=== PATIENT | female | born 1990 | race African-American/Black ===

== ENCOUNTER 2017-01-21 22:25 | Emergency (ER) | payer OTHER ==
[2017-01-21 22:27] VITALS: BP 144/83; PULSE 97; RESP 16; TEMP 98.6; O2SAT 100
[2017-01-22] MEDS ORDERED: MOME17I EACH NARE (00:07)
[2017-01-22] MEDS ORDERED: ALLE12TA2 PO (00:07)
--- NOTE | 2017-01-22 00:11 | PD ---
HPI Chief Complaint: Cold / Flu Symptoms Time Seen by Provider: 00:08 Travel History International Travel<30 days: No Contact w/Intl Traveler<30days: No Traveled to known affect area: No History of Present Illness HPI 26-year-old black female presents emergency Department with complaints of ear pain. She states that her child had been sick earlier this past week. She had developed a cold from her child. She has had a runny nose, cough and congestion. This is been present now for the past 3 days. Today she states that she's been having increasing worsening pain in her right ear. She denies any fever or chills. No shortness of breath or wheezing. No nausea vomiting. No abdominal pain or diarrhea. Symptoms are moderate. No palliative or exacerbating activities History Past Medical History Medical History: Denies Significant Hx ?: Not Past Surgical History Section: Yes Social History Alcohol Use: No Tobacco Use: Yes Allergies-Medications (Allergen,Severity, Reaction): Coded Allergies: Morphine (Verified Allergy, Severe, Hives, 01/22/17) Reported Meds & Prescriptions Reported Meds & Active Scripts Active Esther-D 12 Hour Allergy (Fexofenadine-Pseudoephedrine ER 12 HR) 60-120 Mg Jamie 1 Tab PO BID Nasonex Nasal [place] (Mometasone Furoate) 50 Mcg/Act Naspr 2 [place] EACH NARE DAILY ROS Except as stated in HPI: all other systems reviewed are Neg Physical Exam Narrative GENERAL: Well-developed, well-nourished in no acute distress. Nontoxic appearing. HEAD: Normocephalic, atraumatic. EYES: Pupils equal round and reactive. Extraocular motions intact. No scleral icterus. No injection or drainage. ENT: TMs dull and retracted. The right worse than the left. No erythema. No perforation. The external auditory canals clear. Nose: clear . Posterior pharynx is pink and moist. No tonsillar edema or exudate. Uvula midline. Airway patent. NECK: Trachea midline.Supple, nontender, moves head freely. No central bony tenderness or spasm. CARDIOVASCULAR: Regular rate and rhythm without murmurs, gallops, or rubs. RESPIRATORY: Clear to auscultation. Breath sounds equal bilaterally. No wheezes , rales, or rhonchi. GASTROINTESTINAL: Abdomen soft, non-tender, nondistended. No hepato-splenomegaly , or palpable masses. No guarding. EXTREMITIES: No clubbing, cyanosis, or edema. No joint tenderness, effusion, or edema noted. BACK: Nontender without deformity or crepitance. No flank tenderness. Data Data Last Documented VS Vital Signs Date Time Temp Pulse Resp B/P Pulse Ox O2 Delivery O2 Flow Rate FiO2 01/21/17 22:27 98.6 97 16 144/83 100 MDM Medical Decision Making Medical Screen Exam Complete: Yes Emergency Medical Condition: Yes Medical Record Reviewed: Yes Differential Diagnosis Differential diagnoses: Otitis media, serous otitis media, mastoiditis Narrative Course This is serous otitis media Diagnosis Primary Impression: Serous otitis media Qualified Code: H65.01 - Right acute serous otitis media, recurrence not specified Patient Instructions: General Instructions Additional Instructions: Rest. Increase fluids. 3 Advil every 6 hours for pain. Esther-D and Nasonex. Chew gum. Follow-up with a medical doctor in one week. Return to the ER for emergencies. Med/Other Pt SpecificInfo: Prescription(s) given Scripts Fexofenadine-Pseudoephedrine ER 12 HR (Esther-D 12 Hour Allergy)60-120 Mg Taber1 Tab PO BID #20 TAB Ref 0 Prov:Grady Augustine MD 01/22/17 Mometasone Nasal [place] (Nasonex Nasal [place])50 Mcg/Act Naspr2 [place] EACH NARE DAILY #1 BOTTLE Prov:Grady Augustine MD 01/22/17 Disposition: 01 DISCHARGE HOME Condition: Stable Conrado Jade Jan 22, 2017 00:11
[2017-01-22] MEDS ORDERED: IBUPROFEN 800 MG TAB PO ONE (00:15)
== END 2017-01-22 01:08 | disposition home or self-care (01) ==
LOC: NEPD 22:25
DX: H65.01 Acute serous otitis media, right ear (principal); Z72.0 Tobacco use
CPT/HCPCS: 99284